=== PATIENT | male | born 1955 | race Caucasian/White ===

== ENCOUNTER 2019-03-18 10:08 | Emergency (ER) | payer OTHER ==
[~2019-03-18] VITALS: Ht 182.9 cm; Wt 92.7 kg
[2019-03-18 10:17] VITALS: Ht 182.9 cm; Wt 92.7 kg
[2019-03-18] MEDS ORDERED: FLUDROCORTISON0.1 MG PO (10:21)
[2019-03-18] MEDS ORDERED: BENTYL10 MG PO (10:21)
[2019-03-18] MEDS ORDERED: NEURONTIN 300300 MG (10:22)
[2019-03-18] MEDS ORDERED: MIDODRINE HCL5 MG PO (10:23)
[2019-03-18] MEDS ORDERED: BENADRYL25 MG (10:23)
[2019-03-18] MEDS ORDERED: K-DUR20 MEQ (10:24)
[2019-03-18] MEDS ORDERED: PROTONIX40 MG PO (10:24)
[2019-03-18] MEDS ORDERED: DECADRON4 MG PO (10:25)
[2019-03-18] MEDS ORDERED: AMOXICILLIN875 MG PO (10:26)
[2019-03-18] MEDS ORDERED: ATROPINE SULFA3.5 GM PO (10:26)
[2019-03-18] MEDS ORDERED: BUSPAR10 MG (10:27)
[2019-03-18] MEDS ORDERED: BAYER CHEWABLE81 MG PO (10:27)
[2019-03-18] MEDS ORDERED: MULTI-DAY VITAM1 TAB PO (10:27)
[2019-03-18 11:11] LABS: ALBUMIN 1.9 g/dL (3.4-5.0); ALKALINE PHOSPHATASE 112 U/L (46-116); ALT (SGPT) 25 U/L (10-68); BILIRUBIN - TOTAL 0.25 mg/dL (0.2-1.3); CALC OSMOLALITY 288 mosm/kg (275-300); CARBON DIOXIDE 27.3 mmol/L (21.0-32.0); CHLORIDE - SERUM 110 mmol/L (98-107); GLUCOSE 109 mg/dL (74-106); POTASSIUM - SERUM 3.5 mmol/L (3.5-5.1); PROTEIN - SERUM 5.5 g/dL (6.4-8.2); SODIUM 145 mmol/L (136-145); UREA NITROGEN 9 mg/dL (7-18); eGFR NON AFRICAN AMERICAN 80 mL/min (90-120)
[2019-03-18 11:14] LABS: AMYLASE - SERUM 59 U/L (25-115); LIPASE 98 U/L (73-393); TROPONIN-I 0.036 ng/mL (0.000-0.060)
[2019-03-18 11:18] LABS: BASOPHILS 0.2 % (0-2); EOSINOPHILS 3.1 % (0-7); HEMATOCRIT 29.2 % (42.0-54.0); HEMOGLOBIN 9.5 g/dL (13.5-17.5); IMMATURE GRANULOCYTES 3.6 % (0-5); LYMPHOCYTES 31.7 % (15-50); MCH 32.6 pg (26.0-34.0); MCHC 32.5 g/dL (31.0-37.0); MCV 100.3 fL (80.0-100.0); MEAN PLATELET VOLUME 10.3 fL (7.4-10.4); MONOCYTES 19.4 % (2-11); PLATELET COUNT 211 10x3/uL (130-400); RBC 2.91 10x6/uL (4.20-6.10); RDW 16.8 % (11.5-14.5); WBC 8.1 10x3/uL (4.8-10.8)
[2019-03-18 12:08] LABS: % SATURATION 37 % (15-55); IRON 77 ug/dl (35-150); TOTAL IRON BIND CAPACITY 205 ug/dl (260-445); UNSAT IRON BIND CAPACITY 128 ug/dl (150-375)
[2019-03-18 12:51] LABS: AMORPHOUS SEDIMENT <1+ /lpf (NONE SEEN); APPEARANCE CLEAR (CLEAR); BACTERIA FEW /hpf (NONE SEEN); BILIRUBIN NEGATIVE (NEGATIVE); COLOR YELLOW (YELLOW); EPITHELIAL CELLS RARE /hpf (0-5); GLUCOSE 100 mg/dL (NEGATIVE); KETONE NEGATIVE (NEGATIVE); NITRITE NEGATIVE (NEGATIVE); PROTEIN 3+ mg/dL (NEGATIVE); SPECIFIC GRAVITY 1.015 (1.005-1.020); UROBILINOGEN NORMAL (NORMAL); WHITE CELLS - URINE RARE /hpf (0-5)
[2019-03-18 18:34] VITALS: BP 143/87
== END 2019-03-18 18:36 | disposition other institution (70) ==
LOC: D.ER 10:08
PROVIDERS: Emergency Medicine
DX: M54.16 Radiculopathy, lumbar region (principal); D64.9 Anemia, unspecified; R15.9 Full incontinence of feces; E11.9 Type 2 diabetes mellitus without complications; Z85.038 Personal history of other malignant neoplasm of large intestine; Z85.048 Personal history of other malignant neoplasm of rectum, rectosigmoid junction, and anus